=== PATIENT | male | born 1945 | race Hispanic/Latino ===

== ENCOUNTER → 2022-02-20 | Outpatient (CLI) | payer OTHER ==
[~2022-02-20] MED LIST: ASPI-1005 PO; ATOR20TA65 PO; CALC-131 PO; FERR-82 PO; FURO-151 PO; LOSA25TA2 PO; METO25TA3 PO; POTA-192 PO; SPIR25TA6 PO; TAMS-1 PO
[2022-02-20 13:09] LABS: POTASSIUM 4.8 mmol/L (3.5-5.1)
== END | disposition home or self-care (01) ==
LOC: LAB 11:11
PROVIDERS: ATTEND Internal Medicine
DX: I10 Essential (primary) hypertension (principal); I25.10 Atherosclerotic heart disease of native coronary artery without angina pectoris
CPT/HCPCS: 36415; 80048

== ENCOUNTER → 2022-11-23 | Outpatient (CLI) | payer OTHER | END | disposition home or self-care (01) | LOC: SHCH 08:52 | PROVIDERS: ATTEND Internal Medicine | DX: I34.0 Nonrheumatic mitral (valve) insufficiency (principal); I25.5 Ischemic cardiomyopathy; I51.7 Cardiomegaly | CPT/HCPCS: 93306 ==